=== PATIENT | female | born 1995 | race Caucasian/White ===

== ENCOUNTER → 2017-12-09 | Outpatient (CLI) | payer OTHER ==
[~2017-12-09] MED LIST: METHACHOLINE KIT (J7674) INH
== END ==
LOC: M CARPUL 09:29
DX: R06.02 Shortness of breath (principal)
CPT/HCPCS: J7674

== ENCOUNTER → 2020-04-29 | Outpatient (CLI) | payer SELFPAY | LOC: M LABSMTC 12:05 | PROVIDERS: ATTEND Pediatrics | DX: Z20.822 Contact with and (suspected) exposure to COVID-19 (principal) ==